=== PATIENT | male | born 1940 | race Caucasian/White ===

== ENCOUNTER 2018-09-03 19:26 | Observation (INO) ==
[2018-09-03] MEDS ORDERED: ASPIRIN PO ONE (19:35)
[2018-09-03 19:52] LABS: BASO# 0.01 X1000 (0.0-0.2); BASO% 0.1 % (0.0-0.8); EOS% 1.1 % (0.0-10.0); HEMOGLOBIN 14.3 g/dL (14.0-18.0); LYMPH# 0.56 X1000 (1.2-3.4); LYMPH% 6.3 % (20.5-51.1); MCH 29.9 PG (27-31); MCHC 32.5 g/dL (33-37); MCV 92.1 FL (81-99); MONO# 0.51 X1000 (0.11-0.59); MONO% 5.7 % (1.7-9.3); MPV 11.3 FL (7.4-10.4); NEUT# 7.76 X1000 (1.4-6.5); NEUT% 86.8 % (42.2-75.2); PLT 154 X1000 (130-400); RBC 4.78 XMIL (4.7-6.1); RDW 14.2 % (11.5-14.5); WBC 8.94 X1000 (4.8-10.8)
[2018-09-03 19:57] LABS: INR 0.98; PROTIME 13.8 Seconds (11.0-16.0)
[2018-09-03 19:58] LABS: PTT 31.6 Seconds (22.3-41.8)
--- NOTE | 2018-09-03 20:23 | Diag Imaging Result Doc PS360 ---
EXAM: CHEST-2 VIEWS 09/03/2018 HISTORY: cp TECHNIQUE: PA and lateral chest COMMENT: There is platelike atelectasis over the left base. This is slightly worse than on 05/25/2017 but otherwise are has been no significant change. IMPRESSION: Minimal left lower lobe atelectasis. Electronically signed by Luis Ladd 09/03/2018 8:20 PM
[2018-09-03 20:24] LABS: ALB/GLOB RATIO 1.6; ALBUMIN 4.1 g/dL (3.5-5.0); CALCIUM 8.9 mg/dL (8.8-10.2); CREATININE 1.2 mg/dL (0.7-1.2); POTASSIUM 3.9 mmol/L (3.5-5.1); TOTAL BILIRUBIN 0.42 mg/dL (0.20-1.00); TOTAL PROTEIN 6.6 g/dL (6.3-8.3)
[2018-09-03] MEDS ORDERED: MORPHINE IV ONE (20:35)
[2018-09-03] MEDS ORDERED: NITROGLYCERIN TOP ONE (20:36)
[2018-09-03] MEDS ORDERED: LOVENOX 1 MG/KG SUBQ ONE (20:58)
[2018-09-03] MEDS ORDERED: LOVENOX SUBQ ONE (21:15)
[2018-09-04] MEDS ORDERED: TYLENOL PO PRN (00:30)
[2018-09-04] MEDS ORDERED: ZOFRAN IV PRN (00:30)
[2018-09-04] MEDS ORDERED: FLEXERIL PO PRN (00:30)
--- NOTE | 2018-09-04 00:44 | HISTORY AND PHYSICAL ---
PRIMARY CARE PHYSICIAN: Dr. Robles. CHIEF COMPLAINT: Chest pain. HISTORY: A 78-year-old male with a history of coronary artery disease, hyperlipidemia, hypothyroidism, GERD,who presented to emergency department with several days history of having chest pain. He described it as pressure-like with radiation to his jaw. He states that it was not improving and subsequently he had come to the emergency department. In the ED, he was evaluated. 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 At the time of my examination, he denied any headache, fever, chills, nausea, vomiting, diarrhea, hemoptysis or any weight changes, but complained of chest pain. The patient also admits to having some kind of gallbladder disease that he was told about recently. PAST MEDICAL HISTORY: Includes coronary artery disease, CVA, hyperlipidemia, hypothyroidism, GERD. PAST SURGICAL HISTORY: Coronary stent, hernia repair, colon resection. ALLERGIES: Codeine and ampicillin. CURRENT MEDICATIONS: Aspirin 81 mg p.o. q.a.m., Flexeril 5 mg p.o. t.i.d., Proscar 5 mg p.o. q.a.m., [place] 5/325 one p.o. q.6 hours, levothyroxine 100 mcg p.o. daily, naproxen 220 mg p.o. q.a.m., omeprazole 40 mg p.o. q.a.m., rosuvastatin 10 mg p.o. q.a.m., tamsulosin 0.4 mg p.o. q.a.m. SOCIAL HISTORY: He is a former smoker. History of social alcohol use. Denies any illicit drug use. FAMILY HISTORY: No history of coronary artery disease. REVIEW OF SYSTEMS: Fourteen point review of systems as listed in HPI. Other systems negative. PHYSICAL EXAMINATION: GENERAL: Cooperative, friendly male. He is resting more comfortably now. VITAL SIGNS: Temperature 98.6 degrees, pulse 89, respiration 18, blood pressure 129/72. HEENT: Atraumatic, normocephalic. Extraocular movements intact. PERRLA. NECK: No masses. CHEST: Clear to auscultation. CARDIOVASCULAR: Regular rate and rhythm. ABDOMEN: Soft, positive bowel sounds. Some epigastric tenderness. EXTREMITIES: No edema. NEUROLOGIC: Nonfocal. GENITOURINARY: No bladder distention. SKIN: Warm. LABORATORIES AND STUDIES: WBCs 8.94, hemoglobin 14.3, hematocrit 44.0, platelets 154,000. Sodium 142, potassium 3.9, chloride 105, CO2 of 26, BUN is 19, creatinine is 1.2, glucose 128. Troponin is 0.010. Chest x-ray shows some minimal left lower lobe atelectasis. ASSESSMENT: This is a 78-year-old male with a history of coronary disease, hyperlipidemia, hypothyroidism and gastroesophageal reflux disease, who had presented to emergency department with several days history of having intermittent chest pain. We will place the patient for observation for further evaluation and management. 1. Chest pain. 2. Coronary artery disease. 3. Gallbladder disease/epigastric pain. 4. Hyperlipidemia. PLAN: 1. We will admit patient to medical floor with telemetry. 2. Continue with cardiac workup. Check EKG, serial cardiac enzymes. Have patient continue on aspirin. We will use sublingual nitroglycerin p.r.n. chest pain. 3. We will consult Cardiology. 4. We will check an abdominal ultrasound to evaluate for gallbladder disease. 5. We will restart home medications. 6. Put patient on DVT prophylaxis with SCD. 7. We will continue to follow, and reassess and make further recommendations based on patient's clinical course. cc: Renard Barrett MD
--- NOTE | 2018-09-04 01:57 | PROVIDER DOCUMENTATION ---
This chart was entered by Juanita Rivera Scribe, acting as scribe for Madeleine Mcdonald MD. HPI-Chest Pain - General Chief Complaint: Chest Pain Stated Complaint: CP-HEART PT Time Seen by Provider: 09/03/18 20:20 Source: patient Allergies/Adverse Reactions: Patient Allergies Allergy/AdvReac Type Severity Reaction Status Date / Time ampicillin Allergy Mild RASH Verified 09/03/18 20:06 codeine AdvReac Mild HEADACHE Verified 09/03/18 20:06 Home Medications: Home Medication List Medication Instructions Recorded Confirmed Last Taken Type Aspirin 81 mg PO QAM 06/13/13 09/03/18 05/25/17 18:30 History Finasteride [Proscar] 5 mg PO QAM 06/13/13 09/03/18 05/25/17 08:00 History Nitroglycerin Sl [Nitrostat] 0.4 mg SL PRN PRN 06/13/13 09/03/18 11/14/15 06:00 History 0.4 MG Omeprazole 40 mg PO QAM 06/13/13 09/03/18 05/25/17 08:00 History ROSUVAstatin [Crestor] 10 mg PO QAM 06/13/13 09/03/18 05/25/17 08:00 History Tamsulosin [Flomax] 0.4 mg PO QAM 06/13/13 09/03/18 05/25/17 08:00 History Naproxen Sodium [Aleve] 220 mg PO QAM 11/14/15 09/03/18 05/25/17 08:00 History Cyclobenzaprine [Flexeril] 5 mg PO TID PRN 05/25/17 09/03/18 Unknown History Hydrocodone/Acetaminophen 1 ea PO Q6H PRN #6 tab 05/25/17 09/03/18 Unknown Rx [Hydrocodon-Acetaminophen 5-325] Levothyroxine Sodium 1 tab PO QAM 09/03/18 09/03/18 Unknown History Terbinafine HCl 1 tab PO QAM 09/03/18 09/03/18 Unknown History - History of Present Illness-CP Nature of Presenting Problem: Pt is 78/m presenting to ED w/ L central c/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 Pt has some SOB as well. Denies any n/v, diaphoresis. Pt does also have some epigastric pain. Has had poor appetite and felt some weakness. Pt has hx of ND in 2013 and has 2 stents. pt sts that this feels similar to that. Location: reports: substernal Chest Pain Radiation: reports: jaw Quality of Pain: reports: pressure Severity in ED: moderate Onset/Duration: 1-3 hours ago Timing: still present Context/Activities at Onset: reports: none Modifying Factors: improves with: nothing Associated Symptoms: reports: abdominal pain, nausea. denies: vomiting Similar Symptoms Previously?: Yes Recently Seen Here or By Another Healthcare Provider: No Review of Systems - Adult - REVIEW OF SYSTEMS - ADULT Constitutional: reports: chills, fever Eyes: reports: no symptoms reported Ears, Nose, Mouth & Throat: reports: no symptoms reported Cardiovascular: reports: see HPI Respiratory: reports: see HPI Gastrointestinal: reports: see HPI Genitourinary: reports: no symptoms reported Musculoskeletal: reports: no symptoms reported Past History - Adult - PAST MEDICAL HISTORY-ADULT Review of Records: reports: Old Records Reviewed Major Childhood Illnesses: reports: denies history Cardiovascular: reports: CAD, hyperlipidemia Respiratory: reports: denies history Gastrointestinal: reports: GERD Obstetrical/Gynecological: reports: denies history Genitourinary: reports: kidney stones Musculoskeletal: reports: denies history Neurological: reports: CVA Endocrine/Immune: reports: thyroid disorder Other Conditions: reports: denies history - PRIOR SURGERIES/PROCEDURES Surgical/Procedure History: reports: cardiac stent, hernia repair, bowel surgery (colon) - IMMUNIZATION STATUS Childhood Immunizations: See Nurse Assessment Flu Vaccine: See Nurse Assessment - FAMILY HISTORY Family History: reviewed, not pertinent Physical Exam-General - CONSTITUTIONAL General Appearance: alert, mild distress - EYES Eyes: PERRL/EOMI, pink conjunctivae - HEAD, EARS, NOSE, MOUTH & THROAT HENMT: normocephalic/atraumatic, moist mucous membranes, normal ENT inspection, TMs normal, pharynx normal - NECK Neck: non-tender, full range of motion, supple, normal inspection - RESPIRATORY Respiratory: lungs clear - CARDIOVASCULAR Cardiovascular: regular rate, rhythm - GASTROINTESTINAL (ABDOMEN) Abdominal Exam: normal bowel sounds, non tender, soft - LYMPHATIC Lymphatic: no adenopathy - MUSCULOSKELETAL Extremity: normal range of motion, non-tender, normal gait, normal inspection - SKIN Integumentary: normal color, warm/dry. negative: diaphoresis - NEUROLOGIC Neurologic: grossly normal - PSYCHIATRIC Psych/Mental Status: normal thought content, normal thought process, oriented x 3 - HEART Score HEART Score: History: Moderately Suspicious HEART Score: ECG: Non-Specific Repolarization Disturbance/LBBB/PM HEART Score: Age: > or = 65 Years HEART Score: Risk Factors for Atherosclerotic Disease: > or = 3 Risk Factors or History of Atherosclerotic Disease HEART Score: Troponin: < or = Normal Limit Total HEART Score:: 6 Progress - PLAN OF CARE/RESULTS Progress/Plan/Lab Results: Vital Signs - 8 hr 09/03/18 19:32 09/03/18 20:00 09/03/18 20:03 Temperature 98.6 F Pulse Rate 89 74 78 Respiratory Rate 18 15 19 Blood Pressure 126/72 135/80 128/84 O2 Sat by Pulse Oximetry 97 97 97 Laboratory Results - last 24 hr 09/03/18 09/03/18 09/03/18 19:40 19:40 19:40 WBC 8.94 RBC 4.78 Hgb 14.3 Hct 44.0 MCV 92.1 MCH 29.9 MCHC 32.5 L RDW Std Deviation 14.2 Plt Count 154 MPV 11.3 H Immature Gran % (Auto) 0.0 Neut % (Auto) 86.8 H Lymph % (Auto) 6.3 L [place] % (Auto) 5.7 Eos % (Auto) 1.1 Baso % (Auto) 0.1 Immature Gran # (Auto) 0.00 Neut # (Auto) 7.76 H Lymph # (Auto) 0.56 L [place] # (Auto) 0.51 Eos # (Auto) 0.10 Baso # (Auto) 0.01 PT INR PTT (Actin FS) Sodium 142 Potassium 3.9 Chloride 105 Carbon Dioxide 26 Anion Gap 11 BUN 19 Creatinine 1.2 Estimated GFR/1.73 m2 59 BUN/Creatinine Ratio 16 Glucose 128 H Calculated Osmolality 287 Calcium 8.9 Total Bilirubin 0.42 AST 21 ALT 14 Alkaline Phosphatase 61 Creatine Kinase 157 Troponin T Rmw-[id number]-Vktbbcxpejp Pept 419 Total Protein 6.6 Albumin 4.1 Globulin 2.5 Albumin/Globulin Ratio 1.6 09/03/18 09/03/18 09/03/18 19:40 19:40 23:32 WBC RBC Hgb Hct MCV MCH MCHC RDW Std Deviation Plt Count MPV Immature Gran % (Auto) Neut % (Auto) Lymph % (Auto) [place] % (Auto) Eos % (Auto) Baso % (Auto) Immature Gran # (Auto) Neut # (Auto) Lymph # (Auto) [place] # (Auto) Eos # (Auto) Baso # (Auto) PT 13.8 INR 0.98 PTT (Actin FS) 31.6 Sodium Potassium Chloride Carbon Dioxide Anion Gap BUN Creatinine Estimated GFR/1.73 m2 BUN/Creatinine Ratio Glucose Calculated Osmolality Calcium Total Bilirubin AST ALT Alkaline Phosphatase Creatine Kinase 160 Troponin T < 0.010 Lin-J-Bvuxctxhtvr Pept Total Protein Albumin Globulin Albumin/Globulin Ratio 09/03/18 23:32 WBC RBC Hgb Hct MCV MCH MCHC RDW Std Deviation Plt Count MPV Immature Gran % (Auto) Neut % (Auto) Lymph % (Auto) [place] % (Auto) Eos % (Auto) Baso % (Auto) Immature Gran # (Auto) Neut # (Auto) Lymph # (Auto) [place] # (Auto) Eos # (Auto) Baso # (Auto) PT INR PTT (Actin FS) Sodium Potassium Chloride Carbon Dioxide Anion Gap BUN Creatinine Estimated GFR/1.73 m2 BUN/Creatinine Ratio Glucose Calculated Osmolality Calcium Total Bilirubin AST ALT Alkaline Phosphatase Creatine Kinase Troponin T < 0.010 Dxo-U-Tqshismabqd Pept Total Protein Albumin Globulin Albumin/Globulin Ratio Orders Category Date Time Status Admit - [facility] Routine AdmDCTranf 09/04/18 00:30 Active Apply Mechanical Device [QM] ORDERED Care 09/04/18 00:30 Active Cardiac Monitoring DIRECTED Care 09/03/18 19:36 Completed Notify MD if DIRECTED Care 09/04/18 00:30 Active Nursing- MD Consult Request ROUTINE Care 09/04/18 00:30 Active Oxygen Therapy- ED Nursing DIRECTED Care 09/03/18 19:36 Completed Saline Loc DIRECTED Care 09/04/18 00:30 Active Saline Loc NOW Care 09/03/18 19:36 Active Vital Signs Order Q 4-HR ASSESS Care 09/04/18 00:30 Active Z-Document. for Tele Applied ORDERED Care 09/04/18 00:30 Active Physician/Provider Consults Routine Cons 09/04/18 00:30 Ordered NPO Diet 09/04/18 00:01 Active CHEST-2 VIEWS [RAD] Stat Exams 09/03/18 19:36 Completed US ABDOMEN-COMPLETE [US] Routine Exams 09/04/18 00:30 Ordered CBC WITH ELECTRONIC DIFF [HEME] Routine Lab 09/04/18 06:00 Ordered CBC WITH ELECTRONIC DIFF [HEME] Stat Lab 09/03/18 19:40 Completed CK PROFILE [SP CHEM] Q8H Lab 09/04/18 00:30 Completed CK PROFILE [SP CHEM] Q8H Lab 09/04/18 08:30 Ordered CK PROFILE [SP CHEM] Q8H Lab 09/04/18 16:30 Ordered CK PROFILE [SP CHEM] Stat Lab 09/03/18 19:40 Completed COMPREHENSIVE METABOLIC PANEL [CHEM] Stat Lab 09/03/18 19:40 Completed LIPID PROFILE W/CALC LDL [LIPIDS] Routine Lab 09/04/18 06:00 Ordered PRO B-NATRIURETIC PEPTIDE Stat Lab 09/03/18 19:40 Completed PROTIME WITH INR [COAG] Stat Lab 09/03/18 19:40 Completed PTT [COAG] Stat Lab 09/03/18 19:40 Completed TROPONIN T Q8H Lab 09/04/18 00:30 Completed TROPONIN T Q8H Lab 09/04/18 08:30 Ordered TROPONIN T Q8H Lab 09/04/18 16:30 Ordered TROPONIN T Stat Lab 09/03/18 19:40 Completed Acetaminophen [Tylenol] Med 09/04/18 00:30 Active 650 mg PO Q6H PRN PRN Aspirin Med 09/04/18 09:00 Active 325 mg PO DAILY Aspirin Med 09/03/18 19:35 Discontinued 325 mg PO NOW ONE Cyclobenzaprine [Flexeril] Med 09/04/18 00:30 Active 5 mg PO TID PRN PRN Enoxaparin [Lovenox] Med 09/03/18 21:15 Discontinued 80 mg SUBQ NOW ONE Finasteride [Proscar] Med 09/04/18 09:00 Active 5 mg PO QAM Levothyroxine [Synthroid] Med 09/04/18 07:00 Active 100 microgm PO QAM@0700 Morphine Med 09/03/18 20:35 Discontinued 4 mg IV NOW ONE Nitroglycerin Med 09/03/18 20:36 Discontinued 1 inch TOP NOW ONE Omeprazole [Prilosec] Med 09/04/18 07:00 Active 40 mg PO QAM@0700 Ondansetron [Zofran] Med 09/04/18 00:30 Active 4 mg IV Q4H PRN PRN ROSUVAstatin [Crestor] Med 09/04/18 09:00 Active 10 mg PO QAM Tamsulosin [Flomax] Med 09/04/18 09:00 Active 0.4 mg PO QAM Oxygen Device Routine Oth 09/04/18 00:30 Active Telemetry [OM.EQ] Routine Oth 09/04/18 00:30 Active EKG [EKG] Stat Ther 09/03/18 19:29 Ordered Echo Spec/Color Doppler Routine Ther 09/04/18 00:30 Ordered Transfer/Admit Order [TRANSFER] Routine Transfer 09/03/18 23:57 Completed Result Diagrams: 09/03/18 19:40 09/03/18 19:40 - REASSESSMENT Reassessment #1 Status: improving (pt report less chest pain but still have pain 3/10. denies other complaints.) - CONSULTS/PCP/HOSPITALIST Notification #1 *Consult/PCP/Hospitalist*: cardiology Dr. Grey Time Discussed: 21:12 Consult Disposition: Admit (Hx, PE and pt care discussed. advised with serial EKG and troponin. lovenox due to cardiac Hx. he will see tmw.) #2 Consult: Dr. Renard Barrett Time Discussed: 22:12 Consult Disposition: Admit (Hx, PE and pt care discussed, admitted. cardiology recommendations discussed.) Departure - Departure Date of Disposition Decision: 09/03/18 Time of Disposition Decision: 22:12 DIAGNOSIS: Chest pain Qualifiers: Chest pain type: unspecified Qualified Code(s): R07.9 - Chest pain, unspecified Disposition: ADMITTED INPATIENT 09 Certified Medical Emergency: Emergent Condition: Stable - Critical Care Note This patient required my direct & personal management of CC.: No Attestation - Physician/ DEYA Attestation Patient care was provided by Advanced Practice Provider:: No The physician spent face to face time with patient:: Yes Advanced Practice Provider documentation review:: Supervising physician onsite and consulted in the evaluation and care of this patient. The physician did have a face to face encounter with the patient. This chart was documented by the indicated scribe, (Rivera,Juanita L., Scribe) and accurately reflects the services I performed and decisions made by me, Madeleine Rosas MD, as attested by the provider's signature.
[2018-09-04] MEDS: MORPHINE IV PRN ×3 (02:21→20:12)
[2018-09-04] MEDS: NITROGLYCERIN SL ONE ×2 (05:18→05:25)
[2018-09-04] MEDS ORDERED: PRILOSEC PO SCH (07:00)
[2018-09-04] MEDS: PRILOSEC PO SCH ×3 (07:06→20:11)
[2018-09-04] MEDS: SYNTHROID PO SCH (07:06)
[2018-09-04 07:44] LABS: BASO# 0.01 X1000 (0.0-0.2); BASO% 0.1 % (0.0-0.8); EOS# 0.06 X1000 (0.0-0.7); EOS% 0.6 % (0.0-10.0); HEMATOCRIT 40.3 % (42.0-52.0); HEMOGLOBIN 12.9 g/dL (14.0-18.0); LYMPH# 0.53 X1000 (1.2-3.4); LYMPH% 4.9 % (20.5-51.1); MCH 30.3 PG (27-31); MCV 94.6 FL (81-99); MONO% 8.3 % (1.7-9.3); MPV 11.8 FL (7.4-10.4); NEUT# 9.34 X1000 (1.4-6.5); NEUT% 86.1 % (42.2-75.2); PLT 137 X1000 (130-400); RBC 4.26 XMIL (4.7-6.1); RDW 14.3 % (11.5-14.5); WBC 10.84 X1000 (4.8-10.8)
[2018-09-04 07:52] LABS: CHOLESTEROL 120 mg/dL (0-200); HDL 46 mg/dL (35-55); LDL 61 mg/dL; TRIGLYCERIDES 67 mg/dL (39-160); VLDL 13 mg/dL
[2018-09-04] MEDS: CRESTOR PO SCH (08:06)
[2018-09-04] MEDS: PROSCAR PO SCH (08:06)
[2018-09-04] MEDS: FLOMAX PO SCH (08:06)
[2018-09-04] MEDS ORDERED: ASPIRIN PO SCH ×2 (09:00)
--- NOTE | 2018-09-04 09:14 | Diag Imaging Result Doc PS360 ---
EXAM: US ABDOMEN-COMPLETE 09/04/2018 HISTORY: Epigastric pain TECHNIQUE: Abdominal ultrasound COMMENT: The visualized portions of the pancreas are within normal limits. There is slight dilatation of the infrarenal portion of the abdominal aorta to 2 cm. The gallbladder is clear and nontender. The liver is unremarkable. There is no evidence of biliary dilatation. The common bile duct measures 3 mm. The kidneys are without evidence of hydronephrosis. There is a cyst in the lower pole of the left kidney measuring 3.3 cm in diameter. The spleen is not enlarged. There are no abnormal fluid collections. There is no identifiable abnormality in the area of the palpable knot. IMPRESSION: No evidence of acute disease. Electronically signed by Luis Ladd 09/04/2018 9:11 AM
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
[2018-09-04] MEDS ORDERED: NORCO-5 PO PRN (19:10)
[2018-09-04] MEDS ORDERED: NITROGLYCERIN SL PRN (19:10)
[2018-09-04] MEDS ORDERED: TYLENOL PO ONE (19:36)
[2018-09-04] MEDS ORDERED: SOLU-MEDROL IV ONE (19:37)
--- NOTE | 2018-09-04 20:53 | PROGRESS NOTE ---
DATE: 09/04/2018 SUBJECTIVE: Patient has no complaints except just very severe hand pain, which has been an issue since he injured his neck a couple weeks ago. Apparently they have done that before. OBJECTIVE: Blood pressure is pretty stable, 118/54, heart rate 86, respiratory rate 18, temperature 98.9 degrees.Cardiovascular: Regular rate and rhythm. Pulmonary: Bilateral breath sounds. Clear to auscultation. GI: Soft. PROBLEM LIST: 1. Chest pain is very atypical and it really feels more like it is peptic ulcer disease. He has pain, but specifically after eating, it is kind of an epigastric pain. He has been on Naprosyn, so we are going to get a cardiovascular workup, but then he will likely need EGD. He has seen Dr. Carrion in the past. I am going to put him on some Prilosec twice a day and see how he does. He needs to avoid NSAIDs. 2. Severe osteoarthritis. Presumably this is not a reactive arthritis. I can't give him NSAIDs. Tylenol is acceptable. I may give him a small dose of steroids and see if that helps. He has an ulcer that also can not be maintained for long periods of time and will slow down healing, but we will set him up with GI for that. 3. Cervical radiculopathy. We are going to continue treating him. I am going to scan his neck. Apparently, he had plain films in the past. We will continue to follow. DISPOSITION: Anticipate discharge tomorrow if stable. Disposition pending his clinical status. We will continue to monitor. cc: Homer Armando MD
--- NOTE | 2018-09-04 21:21 | Diag Imaging Result Doc PS360 ---
EXAM: CT CERVICAL SPINE W/O CONTRAST 09/04/2018 HISTORY: cervical necl pain/paresthesias TECHNIQUE: This exam was performed using automated exposure control, adjustment of mA or kV according to patient size, and/or use of iterative reconstruction technique. COMMENT: The current study is compared with the previous examination of 11/24/2016. 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 There is hypertrophic facet disease at C3-4 on the left and particularly at the C3-4 and C4-5 levels on the right side. There is also some osteophyte formation at the facet at C7-T1 on the right. These findings were all present at the time the previous study. There is no evidence of fracture or subluxation. At the C2-3 level there is some left-sided foraminal stenosis which was also present at the time the previous study. At the C3-4 level there is severe facet arthropathy and foraminal stenosis on the right and to a lesser degree on the left. At the C4-5 level there is right-sided foraminal stenosis. At the C5-6 level there is no evidence of significant spinal or foraminal stenosis. At C6-7 there is right-sided foraminal stenosis. At C7-T1 there is no evidence of significant spinal or foraminal stenosis. IMPRESSION: Degenerative changes as described above. No evidence of acute bony abnormality. Electronically signed by Luis Ladd 09/04/2018 9:18 PM
[2018-09-05] MEDS ORDERED: TYLENOL PO PRN (02:00)
[2018-09-05] MEDS: SYNTHROID PO SCH (06:38)
[2018-09-05] MEDS ORDERED: LEXISCAN ONE (07:47)
[2018-09-05 07:49] LABS: HEMATOCRIT 47.7 % (42.0-52.0); HEMOGLOBIN 15.4 g/dL (14.0-18.0); IMM GRAN# 0.02 X1000 (0.0-0.04); IMM GRAN% 0.1 % (0.0-0.5); LYMPH# 0.47 X1000 (1.2-3.4); LYMPH% 3.5 % (20.5-51.1); MCH 29.8 PG (27-31); MCHC 32.3 g/dL (33-37); MCV 92.4 FL (81-99); MONO# 0.32 X1000 (0.11-0.59); MONO% 2.4 % (1.7-9.3); MPV 11.7 FL (7.4-10.4); NEUT# 12.58 X1000 (1.4-6.5); PLT 177 X1000 (130-400); RBC 5.16 XMIL (4.7-6.1); RDW 14.3 % (11.5-14.5); WBC 13.39 X1000 (4.8-10.8)
[2018-09-05 08:03] LABS: AGAP 14; ALB/GLOB RATIO 1.6; ALBUMIN 4.1 g/dL (3.5-5.0); ALKALINE PHOSPHATASE 63 U/L (32-122); BUN 17 mg/dL (8-22); CHLORIDE 102 mmol/L (98-107); COSMO 286; ESTIMATED GFR > 60; GLUCOSE 154 mg/dL (70-104); GOT 17 U/L (10-34); GPT 13 U/L (10-44); POTASSIUM 4.2 mmol/L (3.5-5.1); SODIUM 141 mmol/L (136-145); TCO2 25 mmol/L (25-35); TOTAL BILIRUBIN 0.69 mg/dL (0.20-1.00); TOTAL PROTEIN 6.7 g/dL (6.3-8.3)
--- NOTE | 2018-09-05 08:03 | EKG Report ---
Test Performed on : 09/03/2018 7:35:20 PM Test Reason : cp Blood Pressure : / mmHG Vent. Rate : 078 BPM Atrial Rate : 078 BPM P-R Int : 190 ms QRS Dur : 094 ms QT Int : 360 ms P-R-T Axes : 084 005 070 degrees QTc Int : 410 ms Normal sinus rhythm. 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
--- NOTE | 2018-09-05 08:08 | ECHO REPORT ---
ORDER DATE: 09/04/2018 INTERPRETING PHYSICIAN: Dr. Sandy REQUESTING PHYSICIAN: CLINICAL INDICATIONS: This is a 78-year-old male with chest pain, previous coronary intervention. M-MODE MEASUREMENTS: Right ventricle: cm. Left ventricle end diastole: 4.5 cm. Left ventricle end systole: 2.8 cm. Posterior wall: 1.9 cm. Interventricular septum: 1.9 cm. Left atrium: 3.2 cm. Aortic root: 3.2 cm. SUMMARY OF 2-DIMENSIONAL IMAGIN. The left ventricular function is normal. Ejection fraction is estimated at 65% to 70%. There is no wall motion abnormality noted. 2. Right ventricle appears to be normal. 3. The aortic valve opens normally. Color flow mapping is unremarkable. 4. The mitral valve shows trace regurgitation. 5. The pulse wave Doppler of mitral inflow is normal. 6. Tissue Doppler of septal and lateral mitral annulus averages 10 cm. 7. Pulmonary venous flow is normal. 8. There is no diastolic dysfunction. 9. Tricuspid valve shows very mild degree of regurgitation. 10.Inferior vena cava is at the upper limits of normal. 11.Pulmonary pressure is in the order of 27 to 32 mmHg. 12.Pulmonic valve is unremarkable. 13.There is no pericardial effusion, mass or thrombus. Clinical correlation is recommended. cc: MD Renard Candelario MD
[2018-09-05 08:29] LABS: BANDS 6 % (0-1); LYMPHS 6 % (21-51); SEGS 88 % (42-75)
[2018-09-05 08:53] LABS: SED RATE 18 mm/hr (0-15)
[2018-09-05] MEDS: CRESTOR PO SCH (10:35)
[2018-09-05] MEDS: PRILOSEC PO SCH (10:35)
[2018-09-05] MEDS: FLOMAX PO SCH (10:35)
[2018-09-05] MEDS: PROSCAR PO SCH (10:35)
[2018-09-05 11:38] VITALS: BP 119/62
--- NOTE | 2018-09-05 14:19 | Diag Imaging Result Document ---
PROCEDURE NAME: MYOCARDIAL PERF SCAN, STR/REST - 09/05/2018 REFERRING PHYSICIAN: PROCEDURE: Lexiscan Cardiolite stress test. SUMMARY: 1. Walking Lexiscan was performed. 2. There was no chest pain. 3. Stress electrocardiogram was negative for ischemia. 4. Following Lexiscan infusion, Cardiolite was injected; 12.1 mCi of Cardiolite was injected for the rest phase, 35.9 mCi of Cardiolite was injected for the stress phase. 5. Images revealed chest wall attenuation and diaphragmatic attenuation. 6. The TID was 1.06. 7. Myocardial perfusion images revealed better tracer uptake on the stress compared to rest. 8. There is low-grade small-sized fixed defect in the left ventricular apex. 9. In addition, there was low-grade fixed defect in the base of the inferior wall mid and apex. 10. There is no evidence of ischemia. 11. Left ventricular ejection fraction by gated SPECT was estimated at 60%. 12. There was a difference between the stress ejection fraction and rest ejection fraction; however, there is no definite evidence of ischemia. CONCLUSIONS: 1. No chest pain. 2. Negative Lexiscan stress electrocardiogram. 3. Myocardial perfusion images revealed no evidence of ischemia. 4. There is fixed defect in the mid and base inferior wall with significant diaphragmatic and chest wall attenuation. 5. In addition, there is low-grade fixed defect in the left ventricular apex. 6. All this could represent attenuation defect. 7. Left ventricular ejection fraction estimated at 60%. 8. There is no definite evidence of ischemia. cc: MD Sumeet Alfredo MD
--- NOTE | 2018-09-06 07:14 | DISCHARGE SUMMARY ---
ADMISSION DATE: 09/04/2018 DISCHARGE DATE: 09/05/2018 DISCHARGE DIAGNOSES: 1. Atypical chest pain. 2. Osteoarthritis of the hands. 3. Cervical radiculopathy. PROCEDURES: None CONSULTATIONS: Cardiology. HISTORY,Y: Briefly, this is a 78-year-old male presenting with chest pain. Pain is atypical, and is more epigastric and is worse after eating, which would suggest to me peptic ulcer disease. He had an abdominal ultrasound though that was normal. He had an echo which showed an EF of 65 to 70 percent. No wall motion abnormality. Otherwise unremarkable. Cardiology was consulted. They recommended pursuing a stress test, but likely felt this was noncardiac and GI. He had been on Naprosyn, and I think he will need an endoscopy. I do not think he met criteria for inpatient endoscopy in the sense of he was not anemic. He was not having an active bleed. I did encourage him to stop NSAIDs. I agree with Dr. Esquivel that that was likely a mechanism of injury, could be gastritis, could be ulcers. I did give him steroids because we really do not have a lot of options for his hands. He has pain in both hands. He has known cervical disease. Cervical CT confirmed significant DJD. We recommend he follow up with him, and we also recommend he follow up with Dr. Carrion as an outpatient for EGD. We discharged him on Crestor 10. I would advise that he hold his aspirin for the time being though. Flexeril p.r.n., Flomax 0.4 daily, Synthroid 100 daily, Nitrostat p.r.n., Proscar 5 daily, terbinafine 250 daily, Medrol Dosepak, Prozac 40 b.i.d., and Ultram 50 q.6. DISCHARGE CONDITION: Stable. TIME SPENT: 32 minute discharge. cc: MD Tori Collazo MD Kenneth E. Mashburn, MD
--- NOTE | 2018-09-06 22:06 | EKG Report ---
Test Performed on : 09/04/2018 08:57:36 AM Test Reason : chest pain/ASHD Blood Pressure : / mmHG Vent. Rate : 076 BPM Atrial Rate : 076 BPM P-R Int : 182 ms QRS Dur : 092 ms QT Int : 360 ms P-R-T Axes : 069 -30 054 degrees QTc Int : 405 ms Normal sinus rhythm. Left axis deviation Low voltage QRS Septal infarct (cited on or before 23-FEB-2015) Inferolateral injury pattern Cannot rule out ACUTE [place] / STEMI Abnormal ECG When compared with ECG of 03-SEP-2018 19:35, (Unconfirmed) No significant change was found Confirmed by Joce Covington MD ([id number]) on 09/06/2018 10:06:52 PM
== END 2018-09-05 18:11 | disposition home or self-care (01) ==
LOC: 3N 19:26 → ED 19:26 → SUATTDRO 09-04 00:18
PROVIDERS: ATTEND Internal Medicine
CPT/HCPCS: 71020; 71046; 72125; 76700; 78452; 80053; 80061; 82550; 83880; 84484; 85025; 85610; 85651; 85730; 86140; 93005; 93017; 93306; 94760; 94761; A9270; A9500; J1650; J2270; J2785; J2920; S0138